=== PATIENT | male | born 1970 | race Caucasian/White ===

== ENCOUNTER 2016-11-11 15:21 | Emergency (ER) | payer SELFPAY ==
[~2016-11-11 15:21] MED LIST: MOBIC15 MG; NO MEDICATIONS; TYLENOL325 MG
[2016-11-11] MEDS ORDERED: NO HOME MEDICATION XX (16:01)
[2016-11-11] MEDS ORDERED: NORCO 5-325 TA1 EACH PO (17:41)
== END 2016-11-11 18:04 ==
LOC: EDMED 15:21
DX: S83.422A Sprain of lateral collateral ligament of left knee, initial encounter (principal); Z87.891 Personal history of nicotine dependence; X50.1XXA Overexertion from prolonged static or awkward postures, initial encounter; Y93.02 Activity, running; Y92.89 Other specified places as the place of occurrence of the external cause; Y99.8 Other external cause status

== ENCOUNTER 2016-12-19 20:37 | Observation (INO) | payer MEDICAID ==
[~2016-12-19 20:37] MED LIST changes: +NO HOME MEDICATION XX; +NORCO 5-325 TA1 EACH PO
[2016-12-19] MEDS ORDERED: DAILY MULTIPLE1 EAC2 PO (21:00)
[2016-12-19 21:45] LABS: URINE BILIRUBIN NEGATIVE (NEG); URINE BLOOD LARGE (NEG); URINE GLUCOSE (UA) NEGATIVE (NEG); URINE KETONE NEGATIVE (NEG); URINE LEUKOCYTE ESTERASE NEGATIVE (NEG); URINE NITRITE NEGATIVE (NEG); URINE PROTEIN MODERATE (NEG); URINE SPECIFIC GRAVITY 1.025 (1.003-1.030)
[2016-12-19 21:47] LABS: URINE APPEARANCE CLEAR; URINE COLOR YELLOW
[2016-12-19 21:53] LABS: URINE AMORPHOUS 1+; URINE WBC RARE /[HPF] (0-5)
[2016-12-19 21:57] LABS: BASO % 0.4 % (0-2); EOS % 1.5 % (0-7); EOSINOPHIL ABSOLUTE COUNT 0.1 tho/cmm (0.0-0.7); HCT-HEMATOCRIT 46.9 % (36.0-53.5); HGB-HEMOGLOBIN 16.6 gm/dl (13.5-17.0); LYMPH % 29.6 % (20-45); LYMPH ABSOLUTE COUNT 1.6 tho/cmm (0.8-4.5); MCH (MEAN CORPUSCULAR HGB) 31.3 pg (28.0-32.0); MCHC MEAN CORPUSCULAR HGB CONC 35.4 % (32.0-36.0); MCV (MEAN CELL VOLUME) 88.3 fl (82.0-96.0); MEAN PLATELET VOLUME 9.2 cmc (9.4-12.4); MONO % 6.9 % (0-12); MONOCYTE ABSOLUTE COUNT 0.4 tho/cmm (0.0-1.2); NEUTROPHIL ABSOLUTE COUNT 3.4 tho/cmm (1.6-8.0); NEUTROPHIL-AUTOMATED 3.4 tho/cmm (1.6-8.0); NEUTROPHILS % 61.6 % (40-80); PLATELET COUNT 145 tho/cmm (150-450); RED BLOOD COUNT 5.31 mil/cmm (4.40-5.70); RED CELL DISTRIBUTION WIDTH 12.4 % (12.4-16.4); WHITE BLOOD COUNT 5.5 tho/cmm (4.0-10.0)
[2016-12-19 22:02] LABS: PROTHROMBIN TIME 11.8 SECONDS (9.0-13.6)
[2016-12-19 22:15] LABS: ALB/GLOB RATIO 0.7 (0.8-2.0); ALBUMIN 3.3 g/dl (3.5-5.0); ALKALINE PHOSPHATASE 94 U/L (33-138); ALT/SGPT 36 U/L (12-78); ANION GAP 10 mmol/L (0-20); AST/SGOT 24 U/L (10-40); BILIRUBIN,TOTAL 0.6 mg/dl (0.0-1.5); BLOOD UREA NITROGEN 23 mg/dl (6-24); C-REACTIVE PROTEIN 9.7 mg/dl (0-0.9); CALCIUM 8.5 mg/dl (8.5-10.5); CARBON DIOXIDE-VENOUS 26 mmol/L (22-32); CHLORIDE 107 mmol/l (96-110); CREATININE 1.11 mg/dl (0.60-1.30); GLUCOSE 99 mg/dL (70-110); LIPASE 102 U/L (73-393); POTASSIUM 3.8 mmol/L (3.7-5.1); SODIUM 139 mmol/L (135-145); eGFR VALUE FOR BLACK >90 mL/Min
[2016-12-19 22:16] LABS: ESR-ERYTHROCYTE SED RATE 7 mm/hr (0-15)
[2016-12-20 07:34] LABS: ANION GAP 10 mmol/L (0-20); BLOOD UREA NITROGEN 16 mg/dl (6-24); CALCIUM 7.9 mg/dl (8.5-10.5); CARBON DIOXIDE-VENOUS 27 mmol/L (22-32); CHLORIDE 108 mmol/l (96-110); GLUCOSE 99 mg/dL (70-110); POTASSIUM 3.9 mmol/L (3.7-5.1); SODIUM 141 mmol/L (135-145); eGFR VALUE FOR BLACK >90 mL/Min
[2016-12-20 07:37] LABS: BASO % 0.4 % (0-2); EOSINOPHIL ABSOLUTE COUNT 0.1 tho/cmm (0.0-0.7); HCT-HEMATOCRIT 41.2 % (36.0-53.5); HGB-HEMOGLOBIN 14.6 gm/dl (13.5-17.0); LYMPH % 34.5 % (20-45); LYMPH ABSOLUTE COUNT 1.7 tho/cmm (0.8-4.5); MCH (MEAN CORPUSCULAR HGB) 31.3 pg (28.0-32.0); MCHC MEAN CORPUSCULAR HGB CONC 35.4 % (32.0-36.0); MCV (MEAN CELL VOLUME) 88.2 fl (82.0-96.0); MEAN PLATELET VOLUME 9.3 cmc (9.4-12.4); MONOCYTE ABSOLUTE COUNT 0.5 tho/cmm (0.0-1.2); NEUTROPHIL ABSOLUTE COUNT 2.7 tho/cmm (1.6-8.0); NEUTROPHIL-AUTOMATED 2.7 tho/cmm (1.6-8.0); NEUTROPHILS % 54.1 % (40-80); PLATELET COUNT 137 tho/cmm (150-450); RED BLOOD COUNT 4.67 mil/cmm (4.40-5.70); RED CELL DISTRIBUTION WIDTH 12.4 % (12.4-16.4)
[2016-12-20] MEDS ORDERED: CIPROFLOXACIN750 M1 PO (16:46)
[2016-12-20] MEDS ORDERED: BENTYL10 M1 PO (16:47)
== END 2016-12-20 17:50 ==
LOC: EDMED 20:37 → EMR2 12-20 03:48 → 5WE 12-20 05:08
PROVIDERS: Emergency Medicine; Family Medicine; ADMIT Family Medicine
DX: A04.5 Campylobacter enteritis (principal); D69.6 Thrombocytopenia, unspecified; R31.9 Hematuria, unspecified; R50.9 Fever, unspecified; E86.1 Hypovolemia; R63.4 Abnormal weight loss; Z79.899 Other long term (current) drug therapy; Z87.891 Personal history of nicotine dependence; Z80.0 Family history of malignant neoplasm of digestive organs
CPT/HCPCS: G0378; J0500; J2270; J7030; Q9967